=== PATIENT | male | born 1950 | race Caucasian/White ===

== ENCOUNTER 2020-05-25 06:23 | Day surgery (SDC) | payer OTHER ==
[~2020-05-25] VITALS: Ht 167.6 cm; Wt 102.0 kg
[~2020-05-25 06:23] MED LIST: ASPI81CH PO; ATOR40TA PO; METO25 PO; Metoprolol Tart25 MG; Prinivil10 MG PO
--- NOTE | 2020-05-25 09:00 | NUR ---
PT TO RECOVERY ROOM POST PROCEDURE. PT DROWSY, BUT CONVERSING APPROPRIATELY; DENIES PAIN POST PROCEDURE. MONITOR SB WITH ECTOPY 50'S, B/P 126/60, AFEBRILE, SPO2 95% RA. R RADIAL SITE NO SWELLING/HEMATOMA, TR BAND IN PLACE WITH 11 CC AIR; RUE: POSITIVE PLEUTH. PT'S UPDATED BY PHONE WITH PT'S CONSENT.
--- NOTE | 2020-05-25 09:10 | NUR ---
PT'S RHYTHM SB WITH ECTOPY, HAS BRIEF EPISODES OF RETROGRADE CONDUCTION; PT ASYMPTOMATIC WITH RHYTHM. DR CARLOS REVIEWED STRIP.
--- NOTE | 2020-05-25 10:35 | NUR ---
2 CC AIR REMOVED FROM TR BAND, SLOW OOZE, 2 CC REINSTILLED-SITE REMAINS SOFT WITHOUT HEMATOMA.
--- NOTE | 2020-05-25 11:36 | NUR ---
4CC AIR REMOVED FROM R WRIST TR BAND. -BLEEDING OR SWELLING.
--- NOTE | 2020-05-25 11:50 | NUR ---
PT DRESSED SELF WITHOUT ISSUE, SITE UNCHANGED. TR BAND REMOVED CLOTH DOT AND WRIST IMMOBILIZER PLACED; IV REMOVED-CANNULA INTACT. PT PLACED IN SLING PER REQUEST.
--- NOTE | 2020-05-25 12:03 | NUR ---
PT RECEIVED DISCHARGE INSTRUCTIONS, MED LIST AND AFTER CARE INSTRUCTIONS; VERBALIZED GOOD UNDERSTANDING. PT LEFT FACILITY VIA W/C, CONDITION STABLE.
== END 2020-05-25 12:00 | disposition home or self-care (01) ==
LOC: MHTC 06:23
DX: I25.119 Atherosclerotic heart disease of native coronary artery with unspecified angina pectoris (principal); R94.39 Abnormal result of other cardiovascular function study; R06.00 Dyspnea, unspecified; I47.2 Ventricular tachycardia; I49.3 Ventricular premature depolarization; E11.9 Type 2 diabetes mellitus without complications; I10 Essential (primary) hypertension; E66.9 Obesity, unspecified; F17.220 Nicotine dependence, chewing tobacco, uncomplicated; Z68.36 Body mass index [BMI] 36.0-36.9, adult; Z79.82 Long term (current) use of aspirin; Z88.0 Allergy status to penicillin; Z91.013 Allergy to seafood
CPT/HCPCS: 76937; 93458; 99152; 99153; C1769; C1894; J1644; J7030; J7050; Q9967

== ENCOUNTER 2022-03-13 07:20 | Day surgery (SDC) | payer OTHER ==
[~2022-03-13] VITALS: Ht 167.6 cm; Wt 115.3 kg
[2022-03-13] MEDS ORDERED: GLIP5 (07:57)
[2022-03-13] MEDS ORDERED: FURO40 (07:57)
[2022-03-13] MEDS ORDERED: POTA20PAC (07:57)
[2022-03-13] MEDS ORDERED: METF500 (07:57)
[2022-03-13] MEDS ORDERED: ALBU90OI (07:58)
[2022-03-13] MEDS ORDERED: ERGO400 (07:58)
--- NOTE | 2022-03-13 09:28 | NUR ---
03/13/22 0928 KADEN TRAYLOR PREP WAS MODERATELY ADEQUATE PER DR AGUSTIN
== END 2022-03-13 10:17 | disposition home or self-care (01) ==
LOC: ORSCSDS 07:20 → ORSCMMR 08:45 → ORD 08:45 → ORSCSDS 10:17
PROVIDERS: Internal Medicine Gastroenterology
PROC: 0DBP8ZX Excision of Rectum, Via Natural or Artificial Opening Endoscopic, Diagnostic (ICD-10-PCS; principal; 2022-03-13 08:45)
DX: Z12.11 Encounter for screening for malignant neoplasm of colon (principal); K62.1 Rectal polyp; E66.9 Obesity, unspecified; Z68.41 Body mass index [BMI] 40.0-44.9, adult; I47.20 Ventricular tachycardia, unspecified; E11.9 Type 2 diabetes mellitus without complications; I10 Essential (primary) hypertension; I25.10 Atherosclerotic heart disease of native coronary artery without angina pectoris; J45.909 Unspecified asthma, uncomplicated; F41.8 Other specified anxiety disorders; E78.00 Pure hypercholesterolemia, unspecified; Z79.82 Long term (current) use of aspirin; Z79.84 Long term (current) use of oral hypoglycemic drugs; Z79.899 Other long term (current) drug therapy
CPT/HCPCS: 82947; 88305; J2704; J7120